=== PATIENT | female | born 1965 | race Caucasian/White ===

== ENCOUNTER 2018-03-28 20:43 | Inpatient (IN) | payer BC ==
[~2018-03-28] VITALS: Ht 160 cm; Wt 56.0 kg
--- NOTE | ~2018-03-28 | EKG ---
[place], [place] ELECTROCARDIOGRAM REPORT NAME: ZURDO LOIN UNIT #: [id number] ROOM: 403 DOCTOR: BENTON DRAFT REPORT BIRTHDATE: [birth year] [facility] Test Date: 2018-03-28 Test Time: 21:57:08 Pat Name: IFTIKHAR LION Department: Room: Gender: F [employer] Manager: SS RESP : 1965 Requested By: CRISSY MCGOVERN Order Number: [id number] Reading MD: Johanny Wong MD Measurements Intervals [place] Rate: 95 P: 83 NM: 157 QRS: 37 QRSD: 83 T: 45 QT: 431 QTc: 542 Interpretive Statements Sinus rhythm Left atrial enlargement Anterior infarct, old Prolonged QT interval Abnormal EKG. Electronically Signed On 03-29-2018 16:12:02 PDT by Johanny Wong MD CM:EKGRPT:ELECTROCARDIOGRAM REPORT [id number] CRISSY MCGOVERN EPIPHANY DRAFT REPORT CRISSY MCGOVERN
[2018-03-28 20:52] VITALS: BP 187/89
[2018-03-28 21:26] LABS: BILIRUBIN NEGATIVE (NEGATIVE); BLOOD NEGATIVE (NEGATIVE); CLARITY CLEAR (CLEAR); COLOR YELLOW (YELLOW); GLUCOSE NEGATIVE (NEGATIVE); KETONE NEGATIVE (NEGATIVE); LEUKO ESTERASE NEGATIVE (NEGATIVE); NITRITE POSITIVE (NEGATIVE); SPECIFIC GRAVITY <= 1.005 (1.005-1.030); UROBILINOGEN 0.2 E.U./dl (0.2-1.0)
[2018-03-28 21:32] LABS: BACTERIA 3+
[2018-03-28 21:33] LABS: BASO # 0.1 10*3/uL (0.0-0.1); BASO % 1.5 % (0.0-1.0); EOS # 0.4 10*3/uL (0.0-0.4); EOS % 5.3 % (1.0-4.0); HEMATOCRIT 35.1 % (37.0-47.0); HEMOGLOBIN 11.7 g/dl (12.0-16.0); LYMPH # 2.6 10*3/uL (1.3-4.4); LYMPH % 39.9 % (27.0-41.0); MEAN CELL VOLUME 91.9 fl (81.0-99.0); MEAN CORPUSCULAR HGB 30.6 pg (27.0-31.0); MEAN CORPUSCULAR HGB CONC 33.3 g/dl (33.0-37.0); MEAN PLATELET VOLUME 9.9 fl (9.6-12.3); MONO # 0.6 10*3/uL (0.1-1.0); MONO % 8.8 % (3.0-9.0); NEUT # 2.9 10*3/uL (2.3-7.9); NEUT % 44.3 % (47.0-73.0); PLATELET COUNT AUTOMATED 181 10*3/uL (130-400); RED BLOOD COUNT 3.82 10*6/uL (4.10-5.10); RED CELL DISTRI WIDTH 14.2 % (0-14.5); WHITE BLOOD COUNT 6.6 10*3/uL (4.8-10.8)
[2018-03-28 21:35] LABS: URINE AMPHETAMINES < 1000 (1000ng/ml); URINE BARBITURATES < 200 (200ng/ml); URINE BENZODIAZEPINES > 200 (200ng/ml); URINE CANNABINOIDS (THC) < 50 (50ng/ml); URINE COCAINE < 300 (300ng/ml); URINE METHADONE < 300 (300ng/ml); URINE OPIATES < 300 (300ng/ml)
[2018-03-28 21:38] LABS: URINE PHENCYCLIDINE < 25 (25ng/ml)
[2018-03-28 21:50] LABS: ALKALINE PHOSPHATASE 122 U/L (45-117); BUN 16 mg/dl (7-24); CHLORIDE 101 mmol/L (98-107); CREATININE 1.19 mg/dL (0.55-1.02); POTASSIUM 3.4 mmol/L (3.5-5.1); SGOT/AST 44 IU/L (3-35); SGPT/ALT 18 U/L (12-78); SODIUM 138 mmol/L (136-145); TOTAL PROTEIN 7.9 gm/dL (6.4-8.2)
[2018-03-28 21:53] LABS: ACETAMINOPHEN (TYLENOL) < 2.0 ug/ml (10-30); ETHYL ALCOHOL < 3.0 mg/dl (<3)
[2018-03-28 22:00] VITALS: BP 180/85
[2018-03-28 23:30] VITALS: BP 185/87
[2018-03-28 23:55] VITALS: BP 135/65
[2018-03-29] MEDS ORDERED: XIFAXAN550 MG PO (00:27)
[2018-03-29] MEDS ORDERED: LASIX20 MG PO (00:30)
[2018-03-29] MEDS ORDERED: VITAMIN D50000 UNIT PO (00:30)
[2018-03-29] MEDS ORDERED: POTASSIUM CHLO20 ME3 PO (00:32)
[2018-03-29] MEDS ORDERED: CONSTULOSE10 GM/151 PO (00:34)
[2018-03-29 01:16] LABS: CKMB 1.4 ng/ml (0.5-3.6); CPK 120 U/L (26-192)
[2018-03-29 01:17] LABS: TROPONIN I < 0.015 ng/ml (<0.045)
[2018-03-29 07:02] LABS: ALBUMIN 3.2 gm/dl (3.1-4.5); CREATININE 1.16 mg/dL (0.55-1.02); POTASSIUM 3.5 mmol/L (3.5-5.1); TOTAL PROTEIN 6.4 gm/dL (6.4-8.2)
[2018-03-29 08:00] VITALS: BP 110/54
[2018-03-29] MEDS ORDERED: SPIRONOLACTONE50 M1 PO (11:34)
[2018-03-29] MEDS ORDERED: NATURE'S BLEND F1 MG PO (11:34)
[2018-03-29] MEDS ORDERED: NEURONTIN800 MG PO (11:35)
[2018-03-29 12:00] VITALS: BP 110/42
[2018-03-29 16:00] VITALS: BP 120/54
[2018-03-29 20:00] VITALS: BP 112/56
[2018-03-30] VITALS: BP 108/43
[2018-03-30 06:44] LABS: ALBUMIN 2.8 gm/dl (3.1-4.5); CREATININE 1.31 mg/dL (0.55-1.02); POTASSIUM 3.7 mmol/L (3.5-5.1); TOTAL PROTEIN 5.5 gm/dL (6.4-8.2)
[2018-03-30 08:00] VITALS: BP 94/48
[2018-03-30 16:00] VITALS: BP 108/49; BP 110/42
[2018-03-30 19:35] VITALS: BP 107/43
[2018-03-30 20:00] VITALS: BP 126/58
[2018-03-31] VITALS: BP 112/56
[2018-03-31 06:34] LABS: BASO % 0.6 % (0.0-1.0); EOS # 0.6 10*3/uL (0.0-0.4); EOS % 12.2 % (1.0-4.0); HEMATOCRIT 26.3 % (37.0-47.0); HEMOGLOBIN 8.7 g/dl (12.0-16.0); LYMPH # 1.9 10*3/uL (1.3-4.4); LYMPH % 38.3 % (27.0-41.0); MEAN CELL VOLUME 93.6 fl (81.0-99.0); MEAN CORPUSCULAR HGB CONC 33.1 g/dl (33.0-37.0); MEAN PLATELET VOLUME 9.5 fl (9.6-12.3); MONO # 0.5 10*3/uL (0.1-1.0); MONO % 10.6 % (3.0-9.0); NEUT # 1.9 10*3/uL (2.3-7.9); NEUT % 38.1 % (47.0-73.0); PLATELET COUNT AUTOMATED 115 10*3/uL (130-400); RED BLOOD COUNT 2.81 10*6/uL (4.10-5.10)
[2018-03-31 07:12] LABS: ALBUMIN 2.7 gm/dl (3.1-4.5); ALKALINE PHOSPHATASE 94 U/L (45-117); BUN 12 mg/dl (7-24); CHLORIDE 111 mmol/L (98-107); POTASSIUM 3.5 mmol/L (3.5-5.1); SGOT/AST 30 IU/L (3-35); SGPT/ALT 15 U/L (12-78); SODIUM 144 mmol/L (136-145); TOTAL PROTEIN 5.5 gm/dL (6.4-8.2)
[2018-03-31 08:00] VITALS: BP 93/80
[2018-03-31 16:00] VITALS: BP 101/41
[2018-03-31 20:00] VITALS: BP 118/63
[2018-04-01] VITALS: BP 109/52
[2018-04-01 06:12] LABS: BASO % 0.7 % (0.0-1.0); EOS # 0.7 10*3/uL (0.0-0.4); EOS % 12.6 % (1.0-4.0); HEMATOCRIT 25.9 % (37.0-47.0); HEMOGLOBIN 8.4 g/dl (12.0-16.0); LYMPH # 2.3 10*3/uL (1.3-4.4); LYMPH % 38.7 % (27.0-41.0); MEAN CELL VOLUME 94.5 fl (81.0-99.0); MEAN CORPUSCULAR HGB 30.7 pg (27.0-31.0); MEAN CORPUSCULAR HGB CONC 32.4 g/dl (33.0-37.0); MEAN PLATELET VOLUME 10.8 fl (9.6-12.3); MONO # 0.6 10*3/uL (0.1-1.0); MONO % 10.9 % (3.0-9.0); NEUT # 2.2 10*3/uL (2.3-7.9); NEUT % 36.9 % (47.0-73.0); PLATELET COUNT AUTOMATED 113 10*3/uL (130-400); RED BLOOD COUNT 2.74 10*6/uL (4.10-5.10); RED CELL DISTRI WIDTH 14.2 % (0-14.5); WHITE BLOOD COUNT 5.9 10*3/uL (4.8-10.8)
[2018-04-01 06:41] LABS: ALBUMIN 2.4 gm/dl (3.1-4.5); ALKALINE PHOSPHATASE 98 U/L (45-117); BUN 12 mg/dl (7-24); CHLORIDE 111 mmol/L (98-107); CREATININE 0.87 mg/dL (0.55-1.02); POTASSIUM 3.3 mmol/L (3.5-5.1); SGOT/AST 29 IU/L (3-35); SGPT/ALT 15 U/L (12-78); SODIUM 144 mmol/L (136-145); TOTAL PROTEIN 5.1 gm/dL (6.4-8.2)
[2018-04-01 08:00] VITALS: BP 91/46
[2018-04-01 12:00] VITALS: BP 151/60
[2018-04-01 16:00] VITALS: BP 110/42
[2018-04-01 20:00] VITALS: BP 126/58
[2018-04-02] VITALS: BP 90/45
[2018-04-02 04:00] VITALS: BP 98/42
[2018-04-02 06:38] LABS: BASO # 0.1 10*3/uL (0.0-0.1); BASO % 1.1 % (0.0-1.0); EOS # 0.6 10*3/uL (0.0-0.4); EOS % 11.6 % (1.0-4.0); HEMATOCRIT 26.5 % (37.0-47.0); HEMOGLOBIN 8.7 g/dl (12.0-16.0); LYMPH # 2.3 10*3/uL (1.3-4.4); LYMPH % 41.6 % (27.0-41.0); MEAN CELL VOLUME 93.6 fl (81.0-99.0); MEAN CORPUSCULAR HGB 30.7 pg (27.0-31.0); MEAN CORPUSCULAR HGB CONC 32.8 g/dl (33.0-37.0); MEAN PLATELET VOLUME 10.3 fl (9.6-12.3); MONO # 0.6 10*3/uL (0.1-1.0); NEUT % 35.5 % (47.0-73.0); PLATELET COUNT AUTOMATED 110 10*3/uL (130-400); RED BLOOD COUNT 2.83 10*6/uL (4.10-5.10); RED CELL DISTRI WIDTH 14.1 % (0-14.5); WHITE BLOOD COUNT 5.5 10*3/uL (4.8-10.8)
[2018-04-02 07:00] LABS: ALBUMIN 2.5 gm/dl (3.1-4.5); BUN 13 mg/dl (7-24); CHLORIDE 109 mmol/L (98-107); POTASSIUM 3.4 mmol/L (3.5-5.1); SGOT/AST 27 IU/L (3-35); SGPT/ALT 14 U/L (12-78); SODIUM 141 mmol/L (136-145)
[2018-04-02 07:03] LABS: ALKALINE PHOSPHATASE 115 U/L (45-117); CREATININE 0.84 mg/dL (0.55-1.02); TOTAL PROTEIN 5.3 gm/dL (6.4-8.2)
[2018-04-02 08:00] VITALS: BP 96/40
[2018-04-02 12:00] VITALS: BP 100/40
[2018-04-02 16:00] VITALS: BP 98/59
[2018-04-02 20:00] VITALS: BP 100/50
[2018-04-03] VITALS: BP 97/45
[2018-04-03 03:18] LABS: HEPATITIS B SURFACE AG Negative (Negative); HEPATITIS C VIRUS ANTIBODY 0.2 s/co (0.0-0.9)
[2018-04-03 08:00] VITALS: BP 106/50
[2018-04-03 12:00] VITALS: BP 106/53
[2018-04-03 16:00] VITALS: BP 120/54
[2018-04-03 20:00] VITALS: BP 111/59
[2018-04-04] VITALS: BP 102/48
[2018-04-04 06:10] LABS: BUN 15 mg/dl (7-24); CHLORIDE 110 mmol/L (98-107); CREATININE 1.09 mg/dL (0.55-1.02); POTASSIUM 3.3 mmol/L (3.5-5.1); SODIUM 142 mmol/L (136-145)
[2018-04-04 08:00] VITALS: BP 97/55
[2018-04-04 12:00] VITALS: BP 142/71
[2018-04-04] MEDS ORDERED: ATIVAN1 MG PO (13:39)
[2018-04-04 16:00] VITALS: BP 155/93
[2018-04-04 20:00] VITALS: BP 125/56
[2018-04-05] VITALS: BP 130/68
[2018-04-05 08:00] VITALS: BP 109/69
[2018-04-05 12:00] VITALS: BP 115/70
== END 2018-04-05 13:28 | disposition home or self-care (01) | DRG 441 ==
LOC: ED 20:43 → EDHOLD 23:12 → 4E 23:12
PROVIDERS: Family Medicine; Internal Medicine; Nurse Practitioner Family
DX: K72.90 Hepatic failure, unspecified without coma (principal); N17.0 Acute kidney failure with tubular necrosis; N39.0 Urinary tract infection, site not specified; F13.230 Sedative, hypnotic or anxiolytic dependence with withdrawal, uncomplicated; R25.1 Tremor, unspecified; E86.0 Dehydration; I16.0 Hypertensive urgency; K70.30 Alcoholic cirrhosis of liver without ascites; R00.0 Tachycardia, unspecified; E87.6 Hypokalemia; R73.9 Hyperglycemia, unspecified; R74.0 Nonspecific elevation of levels of transaminase and lactic acid dehydrogenase [LDH]; R74.8 Abnormal levels of other serum enzymes; D64.9 Anemia, unspecified; E55.9 Vitamin D deficiency, unspecified; R89.7 Abnormal histological findings in specimens from other organs, systems and tissues; Z72.0 Tobacco use; Z71.6 Tobacco abuse counseling; Z87.898 Personal history of other specified conditions; Z98.82 Breast implant status; Z88.0 Allergy status to penicillin; Z88.8 Allergy status to other drugs, medicaments and biological substances; Z79.899 Other long term (current) drug therapy; Z87.440 Personal history of urinary (tract) infections; Z91.048 Other nonmedicinal substance allergy status; Z98.1 Arthrodesis status